=== PATIENT | male | born 1965 | race Caucasian/White ===

== ENCOUNTER 2019-03-22 11:11 | Emergency (ER) | payer OTHER ==
[2019-03-22 12:35] VITALS: BP 141/86
--- NOTE | 2019-03-22 13:17 | UC ---
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 He has begun dropping things without awareness of this, such as dropping his pick while playing gitar. Nerve conduction testing about 10 years ago showed bilateral CTS. This was done by Dr. Rodríguez, he was advised to consider surgical intervention, and he deferred. Now concerned about the increase in numbness which he is having. He does not take analgesics for pain, does not use splints, and is waiting on seeing a new primary care doctor. He has not recently been screened for B12 or thyroid dysfucntion, but he declines this testing today. He comes today primarily for a referral for evalution. - History Of Current Complaint Chief Complaint: UCUpperExtremity Stated Complaint: B/L HAND/WRIST COMPLAINT Time Seen by Provider: 03/22/19 13:07 Hx Obtained From: Patient Onset/Duration: Gradual Onset - for years Severity Initially: Moderate Severity Currently: Moderate Pain Intensity: 3 Character Of Pain: Aching, Stiffness Aggravating Factor(s): Flexion - of wrists worsens symptoms. Alleviating Factor(s): Rest Associated Signs And Symptoms: Positive: Numbness/Tingling Related History: Dominant Hand Right - Risk Factors Compartment Syndrome Risk Factors: Pain, Paresthesias - Allergies/Home Medications Allergies/Adverse Reactions: Allergies Allergy/AdvReac Type Severity Reaction Status Date / Time No Known Allergies Allergy Verified 03/22/19 12:28 Home Medications: Home Medications NK [No Home Medications Reported] 03/22/19 [History Confirmed 03/22/19] PMH/Surg Hx/FS Hx/Imm Hx Previously Healthy: Yes - no regular physician checks - Surgical History Surgical History: Yes Surgery Procedure, Year, and Place: TEETH EXTRACTIONS. GALLBLADDER. RIGHT KNEE SX X 2. 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 Lives: With Family Alcohol Use: Rare Substance Use Type: None Smoking Status (MU): Heavy Every Day Tobacco Smoker Type: Cigarettes Amount Used/How Often: 1-2 PPD Length of Time of Smoking/Using Tobacco: 20 Have You Smoked in the Last Year: Yes Review of Systems All Other Systems Reviewed And Are Negative: Yes Constitutional: Positive: Negative Skin: Positive: Negative Eyes: Positive: Negative ENT: Positive: Negative Respiratory: Positive: Negative Motor: Positive: Weakness Neurovascular: Positive: Decreased Sensation Musculoskeletal: Positive: Arthralgia Neurological: Positive: Negative Is Patient Immunocompromised?: No Physical Exam Triage Information Reviewed: Yes Appearance: Well-Appearing, Pain Distress - mild Vital Signs: Initial Vital Signs Temp 97.8 F 03/22/19 12:28 Pulse 67 03/22/19 12:28 Resp 16 03/22/19 12:28 BP 141/86 03/22/19 12:28 Pulse Ox 100 03/22/19 12:28 Vital Signs Reviewed: Yes Eye Exam: Normal ENT: Positive: Normal ENT inspection Neck exam: Normal Respiratory: Positive: Lungs clear, Normal breath sounds Cardiovascular: Positive: RRR, No Murmur Musculoskeletal Exam: Other - Mild restriction of rom in both wrists, but without erythema, swelling, or evidence of active synovitis. No obvious joint deformity. 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 He has a tremor of the left thumb observed with wrist extension Musculoskeletal: Positive: Strength Intact, No Edema, ROM Limited @ - mild restriction of wrist extension bilaterally. Normal resisted thumb strength. Decreased thumb opposition. Neurological Exam: Other - minimal hand wasting tremor left thumb Psychological Exam: Other - mildly anxious Skin Exam: Normal Hand/Wrist Course/Dx - Course Course Of Treatment: referred to orthopedics for evaluation given hx of past diagnositic testing with confirmatio of bilateral CTS. Clincial exam does not show marked wasting in hand musculature, and his pattern of thumb numbness and thumb tremor are not completely consistent with CTS. Deferred imaging as there is no obvious evidence of OA, and he will need reassessment prior to considering surgical intervention. Referral to hand surgeon discussed as the most expedient way to assessment of his pain and dysfunction. - Differential Dx/Diagnosis Differential Diagnosis/HQI/PQRI: Carpal Tunnel Syndrome, Tenosynovitis, Other - osteoarthritis Provider Diagnosis: Bilateral carpal tunnel syndrome Discharge ED - Sign-Out/Discharge Documenting (check all that apply): Patient Departure All imaging exams completed and their final reports reviewed: No Studies - Discharge Plan Condition: Stable Disposition: HOME Patient Education Materials: Paresthesia (ED) Referrals: No Primary Care Phys,NOPCP [Primary Care Provider] - Kory Andre MD [Medical Doctor] - Additional Instructions: As discussed, your likely best first step is evalution with Dr. Andre, one of our hand surgeons. Please call his office to arrange a visit. - Billing Disposition and Condition Condition: STABLE Disposition: Home
== END 2019-03-22 13:31 | disposition home or self-care (01) ==
LOC: UCCORT 11:11
DX: G56.03 Carpal tunnel syndrome, bilateral upper limbs (principal)
CPT/HCPCS: 99201; G0463

== ENCOUNTER 2019-04-20 06:25 | Day surgery (SDC) | payer OTHER ==
[~2019-04-20 06:25] MED LIST: Buffered Lidocaine 1% SYRIN* 1 ML/SYRINGE INTRADERM ONE; Famotidine IV* 10 MG/ML 2 ML (20 mg) IV ONE; Famotidine IV* 10 MG/ML 2 ML (20 mg) ONE; Lactated Ringers 1000 ML Bag* 1,000 ML IV SCH
[2019-04-20] MEDS ORDERED: Buffered Lidocaine 1% SYRIN* 1 ML/SYRINGE INTRADERM ONE (06:35)
[2019-04-20] MEDS ORDERED: Bupivacaine 0.25% SDV* 30 ML ONE (07:12)
[2019-04-20] MEDS ORDERED: Midazolam* 1 MG/ML 5 ML VIAL (5 MG) ONE (07:29)
[2019-04-20] MEDS ORDERED: Ondansetron INJ* 2 MG/ML VIAL ONE (07:55)
[2019-04-20] MEDS ORDERED: Dexamethasone IV* 4 MG/ML 1 ML (4 MG) ONE (07:55)
[2019-04-20] MEDS ORDERED: Ketorolac INJ* 30 MG/ML 1 ML VIAL ONE (07:55)
[2019-04-20] MEDS ORDERED: Propofol* 10 MG/ML 20 ML BTL ONE (07:55)
[2019-04-20] MEDS ORDERED: Lidocaine 2% PF * 5 ML VIAL ONE (07:56)
[2019-04-20] MEDS ORDERED: fentaNYL* 50 MCG/ML 2 ML VIAL (100 MCG VIAL) ONE (08:02)
[2019-04-20] MEDS ORDERED: Acetaminophen TAB* 325 MG PO PRN (08:39)
[2019-04-20] MEDS ORDERED: Naloxone* 0.4 MG/ML 1 ML VIAL IV PRN (08:39)
[2019-04-20 09:15] VITALS: BP 101/72
--- NOTE | 2019-04-20 18:57 | OP ---
DATE OF OPERATION: 04/20/19 - [facility] DATE OF : 61 SURGEON: Kory Andre MD ANALYTICAL LEAD: LIBBY Benavides ANESTHESIOLOGIST: Dr. Osborne. ANESTHESIA: General. PRE-OP DIAGNOSES: 1. Right carpal tunnel syndrome. 2. Left carpal tunnel syndrome. POST-OP DIAGNOSES: 1. Right carpal tunnel syndrome. 2. Left carpal tunnel syndrome. OPERATIVE PROCEDURE: 1. Right endoscopic carpal tunnel release. 2. Left endoscopic carpal tunnel release. INDICATIONS: Mr. Navarro has pretty severe bilateral carpal tunnel syndrome. We talked about treatment options, risks, and benefits. He wanted to proceed. ESTIMATED BLOOD LOSS: 2 mL. COMPLICATIONS: None. FINDINGS: See above and below. DESCRIPTION OF PROCEDURE: Mr. Navarro was seen in the preoperative holding area. The correct site, side, and procedures were identified. We came back to the operating room where the arm was prepped and draped in the usual fashion and a time- out was performed. The arm was exsanguinated with the Esmarch and the tourniquet inflated. I went ahead and made a 1 cm incision just ulnar to the palmaris longus tendon. Dissection was carried down through the subcutaneous tissue and the distal antebrachial fascia was split transversely with the tenotomy scissors. A 2- prong skin hook was placed underneath the fascia. The carpal tunnel was dilated open. This was on the left side first. I then placed the MicroAire endoscopic carpal tunnel system. The blade was elevated in the appropriate location and the release was completed from distal to proximal. I placed a Justin retractor and confirmed the release. I then released the distal antebrachial fascia proximally. At this point, everything was looking very nice on the left side. There was no more compression on the nerve. The wound was irrigated out and the skin was closed with a 4-0 Prolene suture and a Steri- Strip. Marcaine was infiltrated and a soft dressing was applied. I went ahead and maintaining sterile conditions made a 1 cm incision over the right wrist just ulnar to the palmaris longus tendon. In like manner, the distal antebrachial fascia was split and elevated and then carpal tunnel was dilated and the MicroAire endoscopic carpal tunnel system was introduced. When I had it in the appropriate location, I elevated the blade. The transverse carpal ligament was released along its ulnar aspect from distal to proximal. Once I had completed the release distally, I released the distal antebrachial fascia proximally. The release was looking good. It looked nice and complete. I irrigated out the wound. Skin was closed with 4-0 Prolene suture and a Steri -Strip. 0.25% Marcaine was infiltrated and soft dressing was applied. Once both wrists were dressed, he was taken to the recovery room in stable condition. [id number]/[facility] #: [id number] LAISHA
== END 2019-04-20 09:30 | disposition home or self-care (01) ==
LOC: OREAST 06:25
PROVIDERS: ATTEND Orthopaedic Surgery Hand Surgery
DX: G56.03 Carpal tunnel syndrome, bilateral upper limbs (principal); F17.210 Nicotine dependence, cigarettes, uncomplicated; Z90.49 Acquired absence of other specified parts of digestive tract
CPT/HCPCS: J1100; J1885; J2250; J2405; J2704; J3010; J3490